=== PATIENT | female | born 1995 | race African-American/Black ===

== ENCOUNTER → 2017-06-22 | Outpatient (CLI) | payer OTHER ==
[~2017-06-22] MED LIST: BIRTH CONTROL1 EAC1 PO; MOTRIN400 MG PO
== END | disposition home or self-care (01) ==
LOC: US 12:15
DX: R10.2 Pelvic and perineal pain (principal)

== ENCOUNTER → 2017-08-01 | Day surgery (SDC) | payer OTHER ==
[~2017-08-01] VITALS: Ht 160 cm; Wt 54.4 kg
--- NOTE | ~2017-08-01 | O ---
[place], [place] OPERATIVE NOTE NAME: SELAM MCGHEE UNIT #: [id number] ROOM: DOCTOR: SHANE ALEJANDRO MD BIRTHDATE: [birth year] DOS: 08/01/2017 A 22-year-old patient who presented with rectal bleeding. ALLERGIES: CEFZIL. FAMILY HISTORY: Noncontributory. PAST SURGICAL HISTORY: None. PAST MEDICAL HISTORY: control pills only. SOCIAL HISTORY: Nonsmoker, social alcohol consumer. Today's procedure part of investigation is colonoscopy. PREMEDICATION: Versed and Diprivan. SCOPE: Olympus folding colonoscope 10L video. REPORT: After putting the patient in left lateral position and application of lubricant to the scope, the scope was introduced; thereafter, under direct visualization, advanced through the length of colon without difficulty. Base of the cecum explored, appendiceal orifice identified, ileocecal valve was defined. Scope was gradually withdrawn from ascending, transverse, descending colon. Tortuosity of the colon was appreciated. Rectum does not express any acute pathology. Some irritation; however, was noticed. This could be secondary to preps. Air was suctioned out. The patient was gradually extubated and tolerated the procedure well. IMPRESSION: Tortuous colon, status post colonoscopy, mild irritation of the rectum. PLAN AND DISCUSSION: I would recommend Preparation-H suppositories for conservative management 1 at bedtime x 3 nights in the row and if she requires further management based on bleeding per rectum, same to be continued. More vegetables and fruits to be used in the diet and clinical reassessment. [place], [place] OPERATIVE NOTE NAME: MCGHEESELAM KRAFT UNIT #: [id number] ROOM: DOCTOR: SHANE ALEJANDRO MD BIRTHDATE: [birth year] SHANE ALEJANDRO MD CM:OPRECORD:OPERATIVE NOTE [id number] SHANE ALEJANDRO MD 08/01/17 0902 interface
[2017-08-01 07:33] VITALS: BP 131/74
[2017-08-01 08:31] VITALS: BP 85/37
[2017-08-01 08:46] VITALS: BP 96/69
[2017-08-01 09:01] VITALS: BP 94/52
[2017-08-01 09:15] VITALS: BP 104/59
== END | disposition home or self-care (01) ==
LOC: SDC 07-30 12:30
DX: K63.89 Other specified diseases of intestine (principal); K62.89 Other specified diseases of anus and rectum; Z88.8 Allergy status to other drugs, medicaments and biological substances; J45.909 Unspecified asthma, uncomplicated; Z79.899 Other long term (current) drug therapy

== ENCOUNTER → 2019-06-24 | Day surgery (SDC) | payer OTHER ==
[~2019-06-24] VITALS: Ht 162.5 cm; Wt 59.4 kg
[~2019-06-24] MED LIST changes: +Motrin,Rufen800 MG PO
[2019-06-24 09:00] VITALS: BP 114/62
[2019-06-24 10:40] VITALS: BP 94/42
[2019-06-24 10:55] VITALS: BP 99/51
[2019-06-24 11:28] VITALS: BP 125/70
== END ==
LOC: SDC 06-19 13:15
DX: N87.9 Dysplasia of cervix uteri, unspecified (principal); Z98.890 Other specified postprocedural states; Z88.8 Allergy status to other drugs, medicaments and biological substances

== ENCOUNTER 2019-09-01 10:36 | Emergency (ER) | payer OTHER ==
[~2019-09-01] VITALS: Ht 162.5 cm; Wt 59.0 kg
[2019-09-01] MEDS ORDERED: IBUPROFEN600 MG PO (12:04)
== END 2019-09-01 12:06 | disposition home or self-care (01) ==
LOC: ED 10:36
DX: K08.89 Other specified disorders of teeth and supporting structures (principal); Z79.899 Other long term (current) drug therapy; Z88.1 Allergy status to other antibiotic agents

== ENCOUNTER 2019-12-25 18:41 | Emergency (ER) | payer OTHER ==
[~2019-12-25] VITALS: Ht 162.5 cm; Wt 56.7 kg
[~2019-12-25 18:41] MED LIST changes: +IBUPROFEN600 MG PO
[2019-12-25 21:10] LABS: BASO % 0.4 % (0.0-1.0); EOS # 0.1 10*3/uL (0.0-0.4); EOS % 0.7 % (1.0-4.0); HEMATOCRIT 41.8 % (37.0-47.0); LYMPH # 3.4 10*3/uL (1.3-4.4); LYMPH % 48.9 % (27.0-41.0); MEAN CELL VOLUME 88.9 fl (81.0-99.0); MEAN CORPUSCULAR HGB 28.9 pg (27.0-31.0); MEAN CORPUSCULAR HGB CONC 32.5 g/dl (33.0-37.0); MEAN PLATELET VOLUME 11.2 fl (9.6-12.3); MONO # 0.5 10*3/uL (0.1-1.0); MONO % 6.9 % (3.0-9.0); NEUT % 42.8 % (47.0-73.0); PLATELET COUNT AUTOMATED 270 10*3/uL (130-400); RED CELL DISTRI WIDTH 12.1 % (0-14.5)
[2019-12-25 21:28] LABS: ALBUMIN 3.9 gm/dl (3.1-4.5); ALKALINE PHOSPHATASE 43 U/L (45-117); BUN 8 mg/dl (7-24); CHLORIDE 107 mmol/L (98-107); CREATININE 0.67 mg/dL (0.55-1.02); POTASSIUM 3.6 mmol/L (3.5-5.1); SGOT/AST 15 IU/L (3-35); SGPT/ALT 23 U/L (12-78); SODIUM 139 mmol/L (136-145); TOTAL PROTEIN 8.2 gm/dL (6.4-8.2)
== END 2019-12-25 21:38 | disposition home or self-care (01) ==
LOC: ED 18:41
PROVIDERS: Nurse Practitioner Family
DX: M94.0 Chondrocostal junction syndrome [Tietze] (principal)

== ENCOUNTER 2020-04-01 13:21 | Emergency (ER) | payer OTHER | END 2020-04-01 13:57 | disposition home or self-care (01) | LOC: ED 13:21 | DX: R06.02 Shortness of breath (principal); R07.89 Other chest pain; Z20.828 Contact with and (suspected) exposure to other viral communicable diseases; Z88.1 Allergy status to other antibiotic agents ==

== ENCOUNTER 2020-04-09 11:29 | Emergency (ER) | payer OTHER ==
[2020-04-09 13:03] LABS: BASO % 0.3 % (0.0-1.0); EOS % 0.4 % (1.0-4.0); HEMATOCRIT 42.5 % (37.0-47.0); LYMPH # 1.9 10*3/uL (1.3-4.4); LYMPH % 25.5 % (27.0-41.0); MEAN CELL VOLUME 89.3 fl (81.0-99.0); MEAN CORPUSCULAR HGB 28.6 pg (27.0-31.0); MEAN PLATELET VOLUME 11.9 fl (9.6-12.3); MONO # 0.4 10*3/uL (0.1-1.0); MONO % 5.6 % (3.0-9.0); NEUT # 5.1 10*3/uL (2.3-7.9); NEUT % 67.8 % (47.0-73.0); PLATELET COUNT AUTOMATED 273 10*3/uL (130-400); RED BLOOD COUNT 4.76 10*6/uL (4.10-5.10); RED CELL DISTRI WIDTH 12.1 % (0-14.5); WHITE BLOOD COUNT 7.5 10*3/uL (4.8-10.8)
[2020-04-09 13:21] LABS: ALBUMIN 3.7 gm/dl (3.1-4.5); ALKALINE PHOSPHATASE 43 U/L (45-117); BUN 7 mg/dl (7-24); CHLORIDE 105 mmol/L (98-107); CREATININE 0.76 mg/dL (0.55-1.02); POTASSIUM 3.6 mmol/L (3.5-5.1); SGOT/AST 12 IU/L (3-35); SGPT/ALT 24 U/L (12-78); SODIUM 138 mmol/L (136-145); TOTAL PROTEIN 8.1 gm/dL (6.4-8.2)
[2020-04-09 13:22] LABS: B-hCG (QUALITATIVE) NEGATIVE (NEGATIVE)
[2020-04-09 13:23] LABS: TROPONIN I < 0.015 ng/ml (<0.045)
== END 2020-04-09 18:40 | disposition home or self-care (01) ==
LOC: ED 11:29
PROVIDERS: Physician Assistant
DX: R07.81 Pleurodynia (principal); R07.9 Chest pain, unspecified; R00.2 Palpitations; Z88.1 Allergy status to other antibiotic agents